=== PATIENT | male | born 1975 | race Caucasian/White ===

== ENCOUNTER 2024-11-16 07:40 | Outpatient (AMB) | payer OTHER, SELFPAY ==
--- NOTE | 2024-11-16 07:42 | MHC.OFFVIS ---
Intake Visit Reasons: Mass and lump on neck Intake Note: Patient referred by pcp Dr. Henao for mass and lump Lt lat neck. Present for 6m. Patient c/o: hurts to swallow, ear pain. Melter Supervisor Oxygen Furnace Required: No Accompanied by: Self / Same As Patient Allergies No Known Allergies Allergy (Verified 11/16/24 07:47) HPI Comments Details: Patient presents for evaluation of an left anterior neck wall mass. He has had this roughly 1 year's time. 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 No neoplastic process demonstrated. Patient otherwise never had such issues before a year ago. Tolerating a diet. Regular bowel habits. No recent neck trauma or infections. Patient denies any fever, chills, night sweats, weight loss. Chart was reviewed and patient evaluated Physical Exam HEENT Other: Patient was a large mid left anterior neck cystic type process. Nontender. 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 He would like to have this surgically removed. Risks, benefits, and alternatives of branchial cleft cyst of left-sided neck reviewed with the patient and included but not limited to bleeding, infection, recurrence, numbness, pain, scarring the patient wishes to proceed. All questions answered. Arrangements will be made for this on a day which is convenient for him. 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
--- OUTSIDE RECORDS SUMMARY | 2024-11-16 07:42 | XMS_ITS ---
Author Organization [facility] Address [address] [facility] [address] [place] [address] Care Team Providers Care Coal Dumping Equipment Operator Name Role Phone ABISAI MONTENEGRO Primary Care Provider Nj Wyman Unavailable [phone] Reason For Referral Reason Benign cyst with rar e inflammatory cells and debris, located on the left side of the neck Please evaluate and treat Diagnosis 1 Localized swelling, mass and lump, neck (R22.1) Referral Organization [facility] Referring Provider First Name Nj Referring Provider Last Name Zamzam Referred Provider Specialty General Surg ramírez General Notes Please call the [facility] ent to schedule the appointment, Jade Cavanaugh 11/09/2024 08:13:37 AM > Referral Priority Stat REASON FOR VISIT General Surgery Referral Req Encounters Encounter Location Date Provider Diagnosis [facility] [address] [facility] [address] [place] [address] 10/19/2024 Nj Wyman Enlarged lymph nodes , unspecified R59.9 Assessments Encounter Date Diagnosis (ICD Code) Assessment Notes Treatment Notes Treatment Clinical Notes Section Notes 10/19/2024 Enlarged lymph nodes, unspecified (ICD-10 - R59.9) Plan Of Treatment Referrals Referral Date Details 11/08/2024 11/08/2024, Benign c yst with rare inflammatory cells and debris, located on the left side of the neck Please evaluate and treat Progress Notes * CARTERCLINTON NOBLEDOB:1975 (49 yo M)Acc No.[id number]:10/19/2024 Patient:?CLINTON CARTER :1975???Age:49 Y???Sex:Male Address:[place] [address] Subjective: * Chief Complaints: * ???General Surgery Referral Req * Medical History:? * Surgical History:? * Hospitalization/Major Diagno stic Procedure:? * Medications:? Objective: * Vitals:? * Physical Examination:? Assessment: * Assessment: 1.?Enlarged lymph nodes, uns pecified - R59.9 (Primary)??? Plan: * Treatment: * Procedure Codes:? * true * Date:? Generated for Michael myers/Chapo/eTransmitting on:?11/16/2024 07:42 AM EDT Consultation Request Notes Referral Date Referring Provider Referred Provider Not es 11/08/2024 Nj Wyman , Benign cyst with rare inflammatory cells and debris, located on the left side of the neck Please evaluate and treat
--- OUTSIDE RECORDS SUMMARY | 2024-11-16 07:43 | XMS_ITS ---
Author Organization [facility] Address [address] [address] Care Team Providers Care Director Of Safety And Security Name Role Phone ABISAI MONTENEGRO Primary Care Provider [phone] Nj Wyman Unavailable [phone] Results Encounters Encounter Location Date Provider Diagnosis [facility] [address] [facility] [address] [place] [address] 10/07/2024 Nj Wyman Plan Of Treatment No Information Progress Notes * CLINTON CARTERDOB:1975 (49 yo M)Acc No.[id number]:10/07/2024 Patient:?CLINTON CARTER :1975???Age:49 Y???Sex:Male Address:[place] [address] * true * Date:? Generated for Michael myers/Chapo/eTransmitting on:?11/16/2024 07:42 AM EDT
--- OUTSIDE RECORDS SUMMARY | 2024-11-16 07:43 | XMS_ITS ---
Author Organization [facility] Address [address] [facility] [address] [place] [address] Care Team Providers Care Painter And Body Work Name Role Phone ABISAI MONTENEGRO Primary Care Provider REASON FOR VISIT needle aspiration result Encounters Encounter Location Date Provider Diagnosis [facility] [address] [facility] [address] [place] [address] 10/04/2024 ABISAI MONTENEGRO Plan Of Treatment No Information Progress Notes * CARTERCLINTON NOBLEDOB:1975 (49 yo M)Acc No.[id number]:10/04/2024 Patient:?CLINTON CARTER :1975???Age:49 Y???Sex:Male Address:[place] [address] * true * Date:? Generated for Sanjivi louis/Chapo/eTransmitting on:?11/16/2024 07:43 AM EDT
--- OUTSIDE RECORDS SUMMARY | 2024-11-16 07:43 | XMS_ITS | Patient Health Record ---
Author Organization [facility] Address [address] [facility] [address] [place] [address] Care Team Providers Care Sleep Technician Name Role Phone ABISAI MONTENEGRO Primary Care Provider RicardoasaelNj corona Unavailable [phone] Allergies No Known Allergies Results Component Value Reference Range Notes CBC with Diff, Platelet, NLR -[id number] Reviewed date:07/25/2024 04:06:13 PM Interpretation: Performing Lab:[facility], [address] [place] [address], [place], Phone - [phone], Director - Zackery Notes/Report: WBC 8.6 3.4-10.8 x10E3/uL RBC 5.78 4.14-5.80 x10E6/uL Hemoglobin 16.0 13.0-17.7 g/dL Hematocrit 49.9 37.5-51.0 % MCV 86 79-97 fL MCH 27.7 26.6-33.0 pg MCHC 32.1 31.5-35.7 g/dL RDW 13.0 11.6-15.4 % Platelets 259 150-450 x10E3/uL Neutrophils 61 Not Estab. % Lymphs 30 Not Estab. % Monocytes 6 Not Estab. % Eos 1 Not Estab. % Basos 1 Not Estab. % Neutrophils (Absolute) 5.3 1.4-7.0 x10E3/uL Lymphs (Absolute) 2.6 0.7-3.1 x10E3/uL Neut/Lymph Ratio 2.0 0.0-2.9 ratio Published COVID-19 studies suggest: Low likelihood of severe COVID-19 disease progression 0.0-2.9 High likelihood of severe COVID-19 disease progression >4.9 Monocytes(Absolute) 0.5 0.1-0.9 x10E3/uL Eos (Absolute) 0.1 0.0-0.4 x10E3/uL Baso (Absolute) 0.0 0.0-0.2 x10E3/uL Immature Granulocytes 1 Not Estab. % Immature Grans (Abs) 0.0 0.0-0.1 x10E3/uL Reason For Referral Reason Evaluation and manag ement - 24 hour BP monitor Diagnosis 1 Essential hypertensi on (I10) Referral Organization [facility] Referring Provider First Name [facility] Referring Provider Last Name Kavita Referred Provider Specialty Nephrology General Notes Referral sent to [facility] ([address], [place], [place] [id number] ) - Office will call patient for scheduling., Pantera Ceballos 07/01/2024 12:09:00 PM > Referral Priority Routine Reason Benign cyst with rar e inflammatory cells and debris, located on the left side of the neck Please evaluate and treat Diagnosis 1 Localized swelling, mass and lump, neck (R22.1) Referral Organization [facility] Referring Provider First Name [facility] Referring Provider Last Name Zamzam Referred Provider Specialty General Surg ramírez General Notes Please call the [facility] ent to schedule the appointment, Jade Cavanaugh 11/09/2024 08:13:37 AM > Referral Priority Stat Immunizations Vaccine Route Administration Date Status Comme nts COVID 19 Pfizer Unknown 06/13/2021 Administered COVID Moderna Unknown 08/20/2020 Administered COVID Moderna Unknown 09/17/2020 Administered Social History Tobacco Use: Social History Observation Description Date Details (start date - stop date) Never Smoker NA - NA Tobacco Use/Smoking Question Answer Notes Are you a nonsmoker Alcohol Screen (Audit-C) Question Answer Notes Did you have a drink contain ing alcohol in the past year? Yes How often did you have a dri nk containing alcohol in the past year? 2 to 4 times a month (2 points) How many drinks did you have on a typical day when you were drinking in the past year? 1 or 2 drinks (0 point) How often did you have 6 or more drinks on one occasion in the past year? Never (0 point) Points 2 Interpretation Negative Problems Problem Type SNOMED Code ICD Code Onset Dates Problem Status W/U Status Risk Notes Problem Essential hypertension (84064214) Essential hypertension (I10) Active confirmed Vital Signs Heart Rate 86 /min 07/05/2024 Temperature 97.6 degrees Fahrenheit 07/05/2024 Blood pressure diastolic 82 mm Hg 07/05/2024 Oximetry 97 % 07/05/2024 Height 60 in 07/05/2024 Blood pressure systolic 142 mm Hg 07/05/2024 Weight 314.2 lbs 07/05/2024 BMI 61.36 kg/m2 07/05/2024 Encounters Encounter Location Date Provider Diagnosis [address] [place] [address] 06/28/2024 Ghadeer Ricardoloum Enlarged lymph nodes , unspecified R59.9 and Essential hypertension I10 [address] [place] [address] 07/05/2024 Ghadeer Ricardoloum Essential hypertension I10 [address] [place] [address] 07/01/[address] [place] [address] 08/03/[address] [place] [address] 08/12/2024 BARONE GUL Enlarged lymph nodes , unspecified R59.[address] [place] [address] 08/24/2024 BARONE GUL Enlarged lymph nodes , unspecified R59.[address] [place] [address] 10/04/[address] [place] [address] 10/07/[address] [place] [address] 10/19/2024 Ghadeer Ricardoloum Enlarged lymph nodes , unspecified R59.9 Assessments Encounter Date Diagnosis (ICD Code) Assessment Notes Treatment Notes Treatment Clinical Notes Section Notes 06/28/2024 Enlarged lymph nodes, unspecified (ICD-10 - R59.9) Mr. Carter is a 49-year-old gentleman with morbid obesity here for left submandibular lymph node. Has been for 4 weeks, has not changed in size. Plan as follows: Enlarged lymph node: - Located in the left submandibular area. It has been for the past 4 weeks. Then followed by Strep throat. Throat exam is normal, no exudate. Did discuss that it is most likely secondary to Strep throat. Lymph node measures about 2-3cm. Mobile. We will get an U/S and CBC to r/o any abnormalities. HTN: - States that he has white coat syndrome and usually on repeat is normal. Today in repeat it was still high, even he states that at the urgent care was running. Ordered 24-hour BP monitor to r/o true essential HTN. As for now advised on hydration, reducing salt intake and caffiene. Excercising and weight loss. We will follow in one week. I have rendered the services for this patient under direct supervision of Dr. Montenegro, who did not see the patient but was available upon request 06/28/2024 Essential hypertension (ICD-10 - I10) Mr. Carter is a 49-year-old gentleman with morbid obesity here for left submandibular lymph node. Has been for 4 weeks, has not changed in size. Plan as follows: Enlarged lymph node: - Located in the left submandibular area. It has been for the past 4 weeks. Then followed by Strep throat. Throat exam is normal, no exudate. Did discuss that it is most likely secondary to Strep throat. Lymph node measures about 2-3cm. Mobile. We will get an U/S and CBC to r/o any abnormalities. HTN: - States that he has white coat syndrome and usually on repeat is normal. Today in repeat it was still high, even he states that at the urgent care was running. Ordered 24-hour BP monitor to r/o true essential HTN. As for now advised on hydration, reducing salt intake and caffiene. Excercising and weight loss. We will follow in one week. I have rendered the services for this patient under direct supervision of Dr. Montenegro, who did not see the patient but was available upon request 07/05/2024 Essential hypertension (ICD-10 - I10) Mr. Carter is a 49-year-old gentleman with morbid obesity here for BP follow-up. Plan as follows: HTN: - States that he has white coat syndrome and usually on repeat is normal. He has an Order for 24-hour BP monitor to r/o true essential HTN. Advised on measuring BP at home and contact the office if he noticies high systolic/diastol ic. As for now advised on hydration, reducing salt intake and caffeine. Exercising and weight loss. Enlarged Lymph node: - Located in the left submandibular area. It has not changed in size. Has an U/S appt in . Advised on gargling with salt and water. Developing rash while on PCN most likely viral infection. Advised on discontinuing the abx. I have rendered the services for this patient under direct supervision of Dr. Montenegro, who did not see the patient but was available upon request 08/12/2024 Enlarged lymph nodes, unspecified (ICD-10 - R59.9) 08/24/2024 Enlarged lymph nodes, unspecified (ICD-10 - R59.9) 10/19/2024 Enlarged lymph nodes, unspecified (ICD-10 - R59.9) Plan Of Treatment Pending Test Test Name Order Date CT Guided Biopsy 08/12/2024 Ultrasound Soft Tissue Neck 06/28/2024 CT Neck W WO 08/12/2024 US Lymph Node Needle Biopsy 08/24/2024 Future Test Test Name Order Date COMPREHENSIVE METABOLIC PANEL 10/01/2022 LIPID PANEL 10/01/2022 PSA, SCREEN 10/01/2022 Insurance Providers Payer Name Payer Address Payer Phone Subscriber Number Group Number Insured Name Patient Relationship to Insured Coverage Start Date Coverage End Date [facility] [address] [place] [address] [facility] [place] [id number] CLINTON CARTER Self - patient is the insured 4 Medical (General) History Medical History History ICD Code Obesity Surgical History Surgery Date(Month/Year) vasectomy
== END 2024-11-16 08:08 | disposition home or self-care (01) ==
LOC: HO.HGS 07:41
PROVIDERS: PCP Hospitalist; Visit Provider Surgery
DX: Q18.0 Sinus, fistula and cyst of branchial cleft (principal)
CPT/HCPCS: 99204

== ENCOUNTER → 2024-11-16 07:40 | Outpatient (BNVA) | payer OTHER, SELFPAY | PROVIDERS: PCP Hospitalist; Visit Provider Surgery ==

== ENCOUNTER 2025-01-16 14:16 | Outpatient (REF) | payer OTHER, SELFPAY ==
[2025-01-16 16:49] LABS: Blood Urea Nitrogen 18 mg/dL (9-16); Estimated Glomerular Filt Rate > 60
== END 2025-01-16 14:17 | disposition home or self-care (01) ==
LOC: HO.LAB 14:16
PROVIDERS: PCP Hospitalist; Visit Provider Surgery
DX: R22.1 Localized swelling, mass and lump, neck (principal)
CPT/HCPCS: 36415; 82565; 84520

== ENCOUNTER 2025-01-16 14:16 | Outpatient (AMB) | payer OTHER, SELFPAY ==
--- NOTE | 2025-01-16 14:20 | MHC.OFFVIS ---
Vital Signs 01/16/25 14:23 Height 5 ft 10 in Weight 284 lb BMI 40.7 BP 133/73 Blood Pressure Location Rt brachial Position Sitting Pulse 89 Intake Visit Reasons: mass/lump on neck Intake Note: Patient previously seen by Dr. Gay on 11-16-2024. Referred by pcp Nelda Long for Lt mass/lump on neck. Present for 8m. Patient c/o: pain when swallowing. Lt ear pain. [employer] Worker Required: No Accompanied by: Self / Same As Patient Allergies No Known Allergies Allergy (Verified 01/16/25 14:20) Medication List - Last Reconciled 01/16/25 by Zac Gee MD amlodipine 2.5 mg PO DAILY cetirizine (Zyrtec) 10 mg PO DAILY PRN HPI HPI mass/lump on neck: Details: 49-year-old male here for a left neck mass. He says that he has felt this since June 2024. This seems to have been stable in size for the past few months. He denies any significant pain but he does state that this becomes uncomfortable especially with swallowing. He says that he has been taking Tylenol because of this He denies any skin changes. He denies any drainage. There is no sinus or skin breakdown on the area. [facility] Medical History Mass of left side of neck Seasonal allergies Surgical History H/O: vasectomy Social History Alcohol intake: current Alcohol intake frequency: holidays/special occasions only Patient Tobacco Use Status: Never used Tobacco Review of Systems Const Denies chills and Denies fever(s) Card Denies chest pain, Denies dyspnea and Denies dyspnea on exertion Resp Denies cough, Denies dyspnea and Denies dyspnea on exertion GI Denies hematochezia and Denies change in bowel habits Denies hematuria and Denies difficulty urinating Musc Denies back pain and Denies limited range of motion Neuro Denies focal weakness and Denies convulsions Psych Denies depression and Denies mood swings Physical Exam Vital Signs: Last Vital Signs Pulse 89 01/16/25 14:23 BP 133/73 01/16/25 14:23 BMI result Body Mass Index 40.7 Const General: comfortable and no acute distress Nutritional Appearance: obese Orientation/consciousness: patient oriented x3 Neck Other: Left neck mass, about 5 cm in diameter, not very mobile, vague and not well-defined Neck: Yes no lymphadenopathy Resp Auscultation: clear to auscultation bilaterally Cardio Rhythm: regular rhythm GI Palpation (GI): Soft to palpation, nontender and no guarding Neuro General: patient oriented x3 Assessment & Plan Assessment & Plan (1) Mass of left side of neck: Code(s): R22.1 - Localized swelling, mass and lump, neck Category: Medical Plan: He has had biopsy of this with ultrasound done in [facility] and this showed inflammatory cells. The mass is vague, and not mobile and and seems to involve the deeper tissues. I am going to order for a CAT scan of the neck therefore with IV contrast. I will see him again in the office to discuss the findings. This we will allow us to have a better definition of the mass especially in relation to the great vessels of the neck and other vital structures. Orders: Orders Creatinine Today R22.1 - Localized swelling, mass and lump, neck Blood Urea Nitrogen Today R22.1 - Localized swelling, mass and lump, neck CT soft tissue neck w IV con Today R22.1 - Localized swelling, mass and lump, neck Coding Level of Care Code Est Pt Level 3 (32791) Diagnoses Mass of left side of neck R22.1
[2025-01-16 14:23] VITALS: BP 133/73; PULSE 89; BMI 40.7
--- OUTSIDE RECORDS SUMMARY | 2025-01-16 15:32 | XMS_ITS | Patient Health Record ---
Author Organization [employer] Address [address] [facility] [address] [place] [address] Care Team Providers Care Associate Professor Of Automation Name Role Phone ABISAI MONTENEGRO Primary Care Provider [phone] RicardoasaelNj corona Unavailable [phone] Allergies No Known Allergies Results Component Value Reference Range Notes CBC with Diff, Platelet, NLR -[id number] Reviewed date:07/25/2024 04:06:13 PM Interpretation: Performing Lab:[facility], [address] [place] [address], [place], Phone - [phone], Director - Zackery Notes/Report: WBC 8.6 3.4-10.8 [...] 1 Essential hypertensi on (I10) Referral Organization [facility] Referring Provider First Name Jr Referring Provider Last Name Kavita Referred Provider Specialty Nephrology General Notes Referral sent to [facility] ([address], [place], [place] [id number] ) - Office will call patient for scheduling., Pantera Ceballos 07/01/2024 12:09:00 PM > Referral Priority Routine Reason Benign cyst with rar e inflammatory cells and debris, located on the left side of the neck Please evaluate and treat Diagnosis 1 Localized swelling, mass and lump, neck (R22.1) Referral Organization [facility] Referring Provider First Name Jr Referring Provider Last Name Zamzam Referred Provider Specialty General Surg ramírez General Notes Please call the maryam ent to schedule the appointment, Jade Cavanaugh 11/09/2024 08:13:37 AM > Referral Priority Stat Medications Medication SIG (Take, Route, Frequency, Duration) Notes Start Date End Date Status amLODIPine Besylate 2.5 MG 1 tablet Oral ly Once a day for 30 days 12/01/2024 Active Immunizations Vaccine Route Administration Date Status Comme [...] W/U Status Risk Notes Problem Essential hypertension (I10) Active confirmed Vital Signs Heart Rate 88 /min 12/15/2024 Temperature 97.2 degrees Fahrenheit 12/15/2024 Blood pressure diastolic 82 mm Hg 12/15/2024 Oximetry 99 % 12/15/2024 Height 60 in 12/15/2024 Blood pressure systolic 130 mm Hg 12/15/2024 Weight 291.6 lbs 12/15/2024 BMI 56.94 kg/m2 12/15/2024 Encounters Encounter Location Date Provider Diagnosis [facility] [address] [facility] [address] [place] [address] 06/28/2024 Ghadeer Mazloum Enlarged lymph nodes , unspecified R59.9 and Essential hypertension I10 [address] [place] [address] 07/05/2024 Ghadeer Mazloum Essential hypertension I10 [address] [place] [address] 12/01/2024 Ghadeer Mazloum Essential hypertension I10 [address] [place] [address] 12/15/2024 Ghadeer Mazloum Essential hypertension I10 and Pre-operative examination Z01.[address] [place] [address] 07/01/2024 BARONE GUL [facility] [address] [facility] [address] [place] [address] 08/03/2024 Ghadeer Mazloum [address] [place] [address] 08/12/2024 BARONE GUL Enlarged lymph nodes , unspecified R59.[address] [place] [address] 08/24/2024 BARONE GUL Enlarged lymph nodes , unspecified R59.[address] [place] [address] 10/04/2024 BARONE GUL [facility] [address] [facility] [address] [place] [address] 10/07/2024 Nj Wyman [facility] [address] [facility] [address] [place] [address] 10/19/2024 Nj Wyman Enlarged lymph nodes , unspecified R59.9 [facility] [address] [facility] [address] [place] [address] 12/06/2024 BARONE Gloria [facility] [address] [facility] [address] [place] [address] 12/06/2024 Nj Wyman [address] [place] [address] 12/15/2024 Nj Wyman Assessments Encounter Date Diagnosis (ICD Code) Assessment Notes Treatment Notes Treatment Clinical Notes Section Notes 06/28/2024 Enlarged lymph nodes, unspecified (ICD-10 - R59.9) Mr. Card is a 49-year-old gentleman with morbid obesity [...] 06/28/2024 Essential hypertension (ICD-10 - I10) Mr. Card is a 49-year-old gentleman with morbid obesity [...] 07/05/2024 Essential hypertension (ICD-10 - I10) Mr. Card is a 49-year-old gentleman with morbid obesity here for BP follow-up. Plan as follows: HTN: - States that he has white coat syndrome and usually on repeat is normal. He has an Order for 24-hour BP monitor to r/o true essential HTN. Advised on measuring BP at home and contact the office if he noticies high systolic/diastolic. As for now advised on hydration, reducing [...] Enlarged lymph nodes, unspecified (ICD-10 - R59.9) 12/01/2024 Essential hypertension (ICD-10 - I10) Mr. Card is a 49-year-old gentleman with morbid obesity here for Shoaib for Follow-up. Plan as follows Hypertension - Given elevated blood pressure in the office today, he has also been taking his blood pressure at home and it has been borderline high. However I will start patient on amlodipine 2.5 mg. The possible side effects have been discussed. Advised on reducing salt intake and increase hydration. Encouraged exercising. Will check blood pressure in 2 weeks General concerns have been discussed I have rendered the services for this patient under direct supervision of Dr. Montenegro, who did not see the patient but was available upon request 12/15/2024 Essential hypertension (ICD-10 - I10) Mr. Card is a 49-year-old gentleman with morbid obesity here for Shoaib for Follow-up. Plan as follows Cardiac assessment. Patient can easily do 4 METS. Blood pressure and exam is within normal limits. Continue on amlodipine 2.5mg EKG is done in the office today with HR of 83bpm, No ST elevation/depression . No BBB Check CBC and CMP Pulmonary assessment. Lung exam is normal. No further Intervention NPO on the day of surgery. Take your medications after the surgery. Hold NSAIDs and aspirin 5 days before the procedure. Low risk procedure in a low risk patient. No contraindications for the procedure at this point in time HTN. Blood pressure is within normal limit. Continue on amlodipine 2.5mg. Advised on reducing salt intake with weight loss and excercising. I have rendered the services for this patient under direct supervision of Dr. Montenegro, who did not see the patient but was available upon request 12/15/2024 Pre-operative examination (ICD-10 - Z01.818) Mr. Card is a 49-year-old gentleman with morbid obesity here for Shoaib for Follow-up. Plan as follows Cardiac assessment. Patient can easily do 4 METS. Blood pressure and exam is within normal limits. Continue on amlodipine 2.5mg EKG is done in the office today with HR of 83bpm, No ST elevation/depression . No BBB Check CBC and CMP Pulmonary assessment. Lung exam is normal. No further Intervention NPO on the day of surgery. Take your medications after the surgery. Hold NSAIDs and aspirin 5 days before the procedure. Low risk procedure in a low risk patient. No contraindications for the procedure at this point in time HTN. Blood pressure is within normal limit. Continue on amlodipine 2.5mg. Advised on reducing salt intake with weight loss and excercising. I have rendered the services for this patient under direct supervision of Dr. Montenegro, who did not see the patient but was available upon request Plan Of Treatment Pending Test Test Name Order Date CT Guided Biopsy 08/12/2024 Ultrasound Soft Tissue Neck 06/28/2024 CT Neck W WO 08/12/2024 US Lymph Node Needle Biopsy 08/24/2024 CBC with Diff, Platelet, [id number] 08/2024 Comp. Metabolic Panel [id number] 2024 Next Appt Details Provider Name:ABISAI MONTENEGRO , 01/16/2025 03:45:00 PM, [address] [place] [address], [place], [address], Insurance Providers Payer Name Payer Address Payer Phone Subscriber Number Group Number Insured Name Patient Relationship to Insured Coverage Start Date Coverage End Date [facility] [address] [place] [address] [id number] Rell Card Self - patient is the insured 4 Medical (General) History Medical History History ICD Code Obesity Surgical History Surgery Date(Month/Year) vasectomy
== END 2025-01-16 14:36 | disposition home or self-care (01) ==
LOC: HO.HGS 14:17
PROVIDERS: PCP Hospitalist; Visit Provider Surgery
DX: R22.1 Localized swelling, mass and lump, neck (principal)
CPT/HCPCS: 99213

== ENCOUNTER 2025-02-20 15:15 | Outpatient (REF) | payer OTHER, SELFPAY ==
--- NOTE | ~2025-02-20 | CT_ITS ---
EXAMINATION: CT SOFT TISSUE NECK WITH CONTRAST CLINICAL INFORMATION: Localized swelling, mass and lump, neck. Left-sided neck mass, submandibular region. COMPARISON: None available. TECHNIQUE: Following the intravenous administration of 60 mL of Omnipaque 350 intravenous contrast, helical imaging was performed in the axial plane with generation of coronal and sagittal reformatted images. This CT examination was performed using dose optimization techniques as appropriate, variously including the following: *Automated exposure control *Adjustment of mA and/or kV according to patient size (this includes techniques or standardized protocols for targeted exams where dose is matched to indication/reason for exam; i.e. extremities or head) *Use of iterative reconstruction technique FINDINGS: Lymph Nodes: -There is a solitary enlarged cystic or necrotic lymph node left level IIb, measuring 4.0 x 3.8 x 4.6 cm (AP, TRV, CC). -There are no additional abnormal lymph nodes present within the neck. Carotid Sheath Structures: -Normal. Salivary Glands: -Normal. Tongue Base/Floor of Mouth: -See below. The right aspect is normal. Mucosal Space: -Within the left glossotonsillar sulcus, abutting the left palatine tonsil, there is an oval infiltrative appearing centrally low attenuating mass measuring 2.6 cm in AP, by 2.8 cm in transverse, by 4.5 cm in craniocaudad dimension. This is best seen (series 3, image 54; series 7, image 26). This is highly suspicious for an infiltrating mucosal space mass. This involves the left posterolateral tongue base. Visceral Space: -Thyroid gland: Normal. -The larynx is normal. -Subglottic trachea is normal. -The superior esophagus is normal. Retropharangeal Space: -Normal. Parapharyngeal Fat Planes: -Normal. Router Operator Pin Spaces: -Normal. Anterior Cervical Space: -Normal. Imaged Intracranial Contents: -No mass effect, edema, or abnormal enhancement. Cortical and dural venous sinuses are patent. The skull base is normal. Globes and Orbits: -Normal. Paranasal Sinuses/Mastoids/Tympanic Spaces: -Normally aerated bilaterally. Lung Apices and Superior Mediastinal Structures: -Imaged lung apices are clear and superior mediastinal structures are normal. Bony Structures: -No suspicious bone lesions. No fractures. -Mild degenerative cervical spine changes. -Normal TM joints. CT/CT soft tissue neck w IV con IMPRESSION: 1. Infiltrative centrilobular low attenuating mass within the left glossotonsillar sulcus measuring up to 2.6 x 2.8 x 4.5 cm. This is highly suspicious for primary head and neck neoplasm. Recommend direct visualization and ENT consultation. 2. Enlarged partially cystic or necrotic left level 2A lymph node measuring 4.0 x 3.8 x 4.6 cm. 3. No additional masses or abnormal lymph nodes within the neck. Electronically signed by: Juan Manuel Caldwell MD 02/20/2025 04:02 PM EDT
[2025-02-20] MEDS: iohexoL 350 MG/ML 100 ML INFUS..BTL IV (15:33)
--- OUTSIDE RECORDS SUMMARY | 2025-02-20 15:35 | XMS_ITS | Patient Health Record ---
Author Organization [employer] Address [address] [facility] [address] [place] [address] Care Team Providers Care Revenue Tax Specialist Name Role Phone ABISAI MONTENEGRO Primary Care Provider RicardoaaselNj corona Unavailable [phone] Allergies No Known Allergies Results Component Value Reference Range Notes CBC with Diff, Platelet, NLR [id number] Reviewed date:07/25/2024 04:06:13 PM Interpretation: Performing Lab:[facility], [address] [place] [address], [place], Phone - [phone], Director - Zackery Notes/Report: WBC 8.6 3.4-10.8 [...] 1 Essential hypertensi on (I10) Referral Organization [facility] Referring Provider First Name Jr Referring Provider Last Name Kavita Referred Provider Specialty Nephrology General Notes Referral sent to [facility] ([address], [place], [place] [id number] ) - Office will call patient for scheduling., Pantera Ceballos 07/01/2024 12:09:00 PM > Referral Priority Routine Reason Benign cyst with rar e inflammatory cells and debris, located on the left side of the neck Please evaluate and treat Diagnosis 1 Localized swelling, mass and lump, neck (R22.1) Referral Organization [facility] Referring Provider First Name Jr Referring Provider Last Name Zamzam Referred Provider Specialty General Surg ramírez General Notes Please call the maryam ent to schedule the appointment, Jade Cavanaugh 11/09/2024 08:13:37 AM > Referral Priority Stat Medications Medication SIG (Take, Route, Frequency, Duration) Notes Start Date End Date Status amLODIPine Besylate 2.5 MG 1 tablet Oral ly Once a day; Duration: 30 days 12/01/2024 Active Immunizations Vaccine Route [...] Problem Status W/U Status Risk Notes Problem Morbid obesity (disorder) (723018910) Morbid (severe) obesity due to excess calories (E66.01) Active confirmed Problem Essential hypertension (I10) Active confirmed Vital Signs Heart Rate 79 /min 01/16/2025 Temperature 97.6 degrees Fahrenheit 01/16/2025 Oximetry 100 % 01/16/2025 Blood pressure diastolic 80 mm Hg 01/16/2025 Height 60 in 01/16/2025 Blood pressure systolic 122 mm Hg 01/16/2025 Weight 283.7 lbs 01/16/2025 BMI 55.4 kg/m2 01/16/2025 Encounters Encounter Location Date Provider Diagnosis [address] [place] [address] 06/28/2024 Ghadeer Mazloum Enlarged lymph nodes , unspecified R59.9 and Essential hypertension I10 [address] [place] [address] 07/05/2024 Ghadeer Mazloum Essential hypertension I10 [address] [place] [address] 12/01/2024 Ghadeer Mazloum Essential hypertension I10 [address] [place] [address] 12/15/2024 Ghadeer Mazloum Essential hypertension I10 and Pre-operative examination Z01.[address] [place] [address] 01/16/2025 BARONEJACEY MONTENEGRO Morbid (severe) obesity due to excess calories E66.01 and Dietary counseling and surveillance Z71.[address] [place] [address] 07/01/2024 BARONE GUL [address] [place] [address] 08/03/2024 Ghessentia healther Ricardoloum [address] [place] [address] 08/12/2024 BARONE GUL Enlarged lymph nodes , unspecified R59.9 [facility] [address] [facility] [address] [place] [address] 08/24/2024 BARONE PALL Enlarged lymph nodes , unspecified R59.[address] [place] [address] 10/04/2024 BARONE GUL [address] [place] [address] 10/07/2024 Ghadeer Ricardoloum [address] [place] [address] 10/19/2024 Ghadeer Ricardoloum Enlarged lymph nodes , unspecified R59.[address] [place] [address] 12/06/2024 BARONEJACEY AGUILLONL [address] [place] [address] 12/06/2024 Hortenciaadeer Ricardoloum [address] [place] [address] 12/15/2024 Hortenciaadeer Ricarodloum Assessments Encounter Date Diagnosis (ICD Code) Assessment [...] the patient but was available upon request 01/16/2025 Morbid (severe) obesity due to excess calories (ICD-10 - E66.01) Rell is 49 years old gentleman with hypertension is here today for medical weight management. She also has a lump on the left side of the neck and will have a CT scan with contrast and after that would be operated by Dr. Gee. He is not on pharmacotherapy and he has lost 8 pounds since last visit on dietary changes and lifestyle changes. Plan is as follows Dietary recommendations. Food recall was done today and patient advised to be on low calorie, low carbohydrate diet. Restrict calories to less than 1500 kcal in 24 hours. Low glycemic index foods and encouraged. Meal replacements were recommended. Advised to use uusi-zcx-mlgufkq multivitamins and vitamin D. Advised to use calorie counter and adhere to portion control. Monthly goal is to lose 4-6 pounds Pharmacotherapy.not on pharmacotherapy Exercise. Patient encouraged to increase frequency, intensity and duration of exercise. Encouraged to burn at least 250-500 kcal in one session. Also encouraged to do weight training Assess. Different risk factors discussed with the patient and addressed Advise. Patient was given clear And specific advise that she will comply with Low-calorie diet and try not to exceed more than 1300 kcal in 24 hours. Agree. Mutually agreed to work together to achieve appropriate goals Assist. Motivational interviewing done. Arrange. Follow-up appointment arranged. Counseling. 15 minutes spent Face to face with the patient more than 50% of time was spent counseling 01/16/2025 Dietary counseling and surveillance (ICD-10 - Z71.3) Rell is 49 years old gentleman with hypertension is here today for medical weight management. She also has a lump on the left side of the neck and will have a CT scan with contrast and after that would be operated by Dr. Gee. He is not on pharmacotherapy and he has lost 8 pounds since last visit on dietary changes and lifestyle changes. Plan is as follows Dietary recommendations. Food recall was done today and patient advised to be on low calorie, low carbohydrate diet. Restrict calories to less than 1500 kcal in 24 hours. Low glycemic index foods and encouraged. Meal replacements were recommended. Advised to use truz-ryp-majboie multivitamins and vitamin D. Advised to use calorie counter and adhere to portion control. Monthly goal is to lose 4-6 pounds Pharmacotherapy.not on pharmacotherapy Exercise. Patient encouraged to increase frequency, intensity and duration of exercise. Encouraged to burn at least 250-500 kcal in one session. Also encouraged to do weight training Assess. Different risk factors discussed with the patient and addressed Advise. Patient was given clear And specific advise that she will comply with Low-calorie diet and try not to exceed more than 1300 kcal in 24 hours. Agree. Mutually agreed to work together to achieve appropriate goals Assist. Motivational interviewing done. Arrange. Follow-up appointment arranged. Counseling. 15 minutes spent Face to face with the patient more than 50% of time was spent counseling 07/05/2024 Essential hypertension (ICD-10 - I10) Mr. [...] Needle Biopsy 08/24/2024 CBC with Diff, Platelet, [id number] 050 08/2024 Comp. Metabolic Panel [id number] 2024 Future Test Test Name Order Date Hemoglobin [id number] 01/16/2025 [id number] 01/16/2025 Lipid Panel-[id number] 01/16/2025 Comp. Metabolic Panel [id number] 2024 Next Appt Details Provider Name:ABISAI MONTENEGRO , 02/27/2025 02:45:00 PM, [address] [place] [address], [place], [address], Insurance Providers Payer Name Payer Address Payer Phone Subscriber Number Group Number Insured Name Patient Relationship to Insured Coverage Start Date Coverage End Date [facility] 1 [facility] [address] [place] [address] [id number] Card Rell Self - patient is the insured 4 Medical (General) History Medical History History ICD Code Obesity Surgical History Surgery Date(Month/Year) vasectomy
== END 2025-02-20 15:16 | disposition home or self-care (01) ==
LOC: HO.CT 15:15
PROVIDERS: PCP Hospitalist; Visit Provider Surgery
DX: R22.1 Localized swelling, mass and lump, neck (principal)
CPT/HCPCS: 70491; Q9967

== ENCOUNTER → 2025-02-20 15:17 | Outpatient (BNV) | payer OTHER, SELFPAY | PROVIDERS: PCP Hospitalist; Visit Provider Radiology Diagnostic Radiology | DX: R22.1 Localized swelling, mass and lump, neck (principal) | CPT/HCPCS: 70491 ==

== ENCOUNTER 2025-03-06 14:04 | Outpatient (AMB) | payer OTHER, SELFPAY ==
--- OUTSIDE RECORDS SUMMARY | 2025-02-27 10:45 | XMS_ITS ---
Author Organization [facility] Address [address] [address] Care Team Providers Care School Photographs Detailer Name Role Phone ABISAI MONTENEGRO Primary Care Provider [phone] REASON FOR VISIT WM f/up Encounters Encounter Location Date Provider Diagnosis [facility] [address] [facility] [address] [place] [address] 02/27/2025 ABISAI MONTENEGRO Plan Of Treatment Next Appt Details Provider Name:ABISAI MONTENEGRO , 03/15/2025 01:45:00 PM, [address] [facility] [address], [place], [address], Progress Notes * Rell CARDDOB:1975 (49 yo M)Acc No.[id number]:02/27/2025 Patient: Rell EDWARD Provider: Suri MONTENEGRO MD :1975 A ge:49 Y S ex:Male Date:02/27/2025 Address:[facility] Subjective: * Chief Complaints: * 1 . WM f/up. * Medical History: Objective: * Vitals: Assessment: Plan: * Treatment: * Procedure Codes: N OSHO NO SHOW FEE * Images: * Electronic signature of MICKI MONTENEGRO MD on 03/06/2025 at 02:56 PM EDT Sign off status: Pending * Provider: Suri MONTENEGRO MD Date: 0 02/27/2025 Generated for Printi ng/Faxing/eTransmitting on: 0 03/06/2025 02:56 PM EDT
--- NOTE | 2025-03-06 14:06 | MHC.OFFVIS ---
Vital Signs 03/06/25 14:11 Height 5 ft 10 in Weight 287 lb BMI 41.2 BP 155/93 H Blood Pressure Location Rt brachial Position Sitting Pulse 72 Intake Visit Reasons: CT Results Intake Note: Patient here to discuss Neck CT dated 02-20-25 results. It Operations Specialist Required: No Accompanied by: Self / Same As Patient Allergies No Known Allergies Allergy (Verified 03/06/25 14:11) HPI HPI CT Results: Details: 49-year-old male here for a follow-up for a left neck mass. He says that he has felt this since June 2024. This seems to have been stable in size for the past few months. He denies any significant pain but he does state that this becomes uncomfortable especially with swallowing. He says that he has been taking Tylenol because of this He denies any skin changes. He denies any drainage. There is no sinus or skin breakdown on the area. I had seen him last month for this. He had a large mass which was firm and immobile at that time so I sent him for a CAT scan imaging. He is here to discuss the findings He denies history of smoking. [facility] Medical History Mass of left side of neck Seasonal allergies Surgical History H/O: vasectomy Social History Alcohol intake: current Alcohol intake frequency: holidays/special occasions only Patient Tobacco Use Status: Never used Tobacco Review of Systems Const Denies chills and Denies fever(s) Card Denies chest pain, Denies dyspnea and Denies dyspnea on exertion Resp Denies cough, Denies dyspnea and Denies dyspnea on exertion GI Denies hematochezia and Denies change in bowel habits Denies hematuria and Denies difficulty urinating Musc Denies back pain and Denies limited range of motion Neuro Denies focal weakness and Denies convulsions Psych Denies depression and Denies mood swings Physical Exam Vital Signs: Last Vital Signs Pulse 72 03/06/25 14:11 BP 155/93 H 03/06/25 14:11 BMI result Body Mass Index 41.2 Const General: comfortable and no acute distress Orientation/consciousness: patient oriented x3 HEENT Other: No obvious oral lesions Neck Other: Large firm mass, about 5 cm on the left submandibular area, non mobile, Neck: Yes no lymphadenopathy Resp Auscultation: clear to auscultation bilaterally Cardio Rhythm: regular rhythm GI Palpation (GI): Soft to palpation, nontender and no guarding Neuro General: patient oriented x3 Assessment & Plan Assessment & Plan (1) Mass of left side of neck: Code(s): R22.1 - Localized swelling, mass and lump, neck Category: Medical Plan: He has this large firm nonmobile mass on the left neck on the submandibular area. Therefore had sent him for a CAT scan and this shows a solitary enlarged cystic or necrotic lymph node at level 2 up to 4.6 cm in dimension. Within the left glossotonsillar sulcus abutting the left tonsil is note of an oval infiltrative appearing attenuating mass about up to 4.5 cm in craniocaudad dimension. This is suspicious for an infiltrating mucosal space mass. In view of the above findings, I told him we will arrange for him to be seen by the head and neck surgeon in [place]. I will coordinate his care and I told him that if he has any questions down the line, he should call the office for assistance. He understands the plan well and is comfortable with this. Coding Level of Care Code Est Pt Level 3 (39497) Diagnoses Mass of left side of neck R22.1
[2025-03-06 14:11] VITALS: BP 155/93; PULSE 72; BMI 41.2
== END 2025-03-06 14:46 | disposition home or self-care (01) ==
LOC: HO.HGS 14:05
PROVIDERS: PCP Hospitalist; Visit Provider Surgery
DX: R22.1 Localized swelling, mass and lump, neck (principal)
CPT/HCPCS: 99213